=== PATIENT | male | born 1970 | race Two or more races ===

== ENCOUNTER 2024-12-17 17:52 | Observation (INO) | payer BC, SELFPAY ==
[2024-12-17] VITALS (8 sets, daily range): BP systolic 119–179; BP diastolic 64–104; PULSE 70–157; RESP 14–21; TEMP 36.6–36.8; O2SAT 92–99; BMI 35.9
--- NOTE | 2024-12-17 18:16 | EKG_ITS ---
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
[2024-12-17] MEDS: ASPIRIN 81 MG CHEW 324 MG PO (18:37)
[2024-12-17] MEDS: DILTIAZEM INJ 5 MG/ML VIAL 5 ML 25 MG IV (18:37)
[2024-12-17] MEDS: DILTIAZEM in D5W 125 MG 125 MG/125 ML BAG IV (18:38)
[2024-12-17 19:30] LABS: Basophils # (Auto) 0.0 Thou/mm3 (0.0-0.2); Basophils % (Auto) 0 % (0-2.5); Eosinophils # (Auto) 0.0 Thou/mm3 (0.0-0.5); Eosinophils % (Auto) 0 % (0-10); Hematocrit 37.7 % (41.0-53.0); Hemoglobin 13.1 g/dL (13.5-16.0); Immature Granulocytes Auto 0.01 Thou/mm3 (0.00-0.00); Lymphocytes # (Auto) 2.6 Thou/mm3 (1.0-4.8); Lymphocytes % (Auto) 35 % (10-50); Mean Corpuscular HGB Conc 34.7 g/dl (31.0-37.0); Mean Corpuscular Hemoglobin 31.4 pg (25.0-35.0); Mean Corpuscular Volume 90 fL (80-100); Monocytes # (Auto) 0.7 Thou/mm3 (0.0-0.8); Monocytes % (Auto) 9 % (0-12); Neutrophils # (Auto) 4.2 Thou/mm3 (1.8-7.7); Neutrophils % (Auto) 55 % (37-80); Nucleated Red Blood Cell # 0.00 Thou/mm3 (0.00-0.00); Nucleated Red Blood Cell % 0 /100 WBC (0); Platelet Count 175 Thou/mm3 (140-440); RDW Standard Deviation 46.7 fL (35.1-43.9); Red Blood Count 4.17 Miln/mm3 (4.50-5.90); White Blood Count 7.6 Thou/mm3 (3.8-10.6)
[2024-12-17 19:53] LABS: B-Type Natriuretic Peptide < 20 pg/mL (0-100)
[2024-12-17 19:58] LABS: Alanine Aminotransferase 34 U/L (10-49); Albumin, Serum 4.2 gm/dL (3.5-5.0); Albumin/Globulin Ratio 1.8 (1.2-2.2); Alkaline Phosphatase 45 U/L (46-116); Anion Gap 9 (7-16); Aspartate Amino Transferase 28 U/L (0-34); BUN/Creatinine Ratio 20 Ratio (12-20); Bilirubin,Direct 0.2 mg/dL (0.0-0.3); Bilirubin,Total 0.7 mg/dL (0.3-1.2); Blood Urea Nitrogen 22 mg/dL (9-23); Calcium 10.1 mg/dL (8.3-10.6); Calcium (Corrected) 10.1 mg/dL (8.5-10.1); Carbon Dioxide 28.3 mMol/L (20.0-31.0); Chloride 105 mMol/L (98-107); Creatinine (Component) 1.1 mg/dL (0.6-1.3); Estimated Creatinine Clearance 102.8 mL/min (>60); Free T4 (Free Thyroxine) 1.43 ng/dL (0.89-1.76); Globulin 2.4 gm/dL (2.3-3.5); Glucose 114 mg/dL (74-106); Magnesium 1.6 mg/dL (1.6-2.6); Osmolality,Calculated 287 (275-295); Potassium 4.3 mMol/L (3.4-5.1); Sodium 142 mMol/L (136-145); Thyroid Stimulating Hormone 1.29 uIU/mL (0.55-4.78); Total Protein 6.6 gm/dL (5.7-8.2); Troponin I < 0.020 ng/mL (0.0-0.045); eGFR > 60 See Note
[2024-12-17 20:08] LABS: Collection Type, Urine Clean Catch; RBC,Urine 0 /hpf (0-3); WBC,Urine 0 /hpf (0-5)
[2024-12-17 20:19] LABS: D-Dimer < 250 ng/mL (<600)
[2024-12-17 20:29] LABS: Bilirubin,Urine Negative (Negative); Blood,Urine Negative (Negative); Clarity,Urine Clear (Clear/Hazy); Color,Urine Lt-Yellow (Lt Yel-Yel); Culture Indicated,Urine Not Indicated; Glucose, Urine Negative (Negative); Hyaline Casts,Urine < 1 /hpf (0-1); Ketones,Urine Negative (Negative); Leukocyte Esterase,Urine Negative (Negative); Nitrite,Urine Negative (Negative); PH,Urine 7.0 (5.0-7.0); Protein,Urine Negative (Neg - Trace); Specific Gravity,Urine 1.012 (1.001-1.035); Squamous Epithelial Cell,Urine 1 /hpf (0-5); Urobilinogen,Urine Negative mg/dL (0.0-1.0)
[2024-12-17 20:34] LABS: Base Excess 4 (-3-3); HCO3 29 mEq/L (20-26); Inspired Oxygen, FIO2 21 %; O2 Saturation 70 % (91-98); PCO2 46 mmHg (32.0-48.0); pH, Arterial 7.41 (7.35-7.45)
[2024-12-17 20:44] LABS: Allen Test Performed/OK; PO2 37 mmHg (83-108); Puncture Site Right Radial
[2024-12-17] MEDS: Magnesium Sulfate 2 GM Ivpb 2 GM/50 ML BAG IV ×2 (20:50→23:25)
--- NOTE | 2024-12-17 21:27 | PD.RESHP ---
Documentation for date of: 12/17/24 HPI History of Present Illness Chief complaint: afib w/ RVR History of present illness: 54 y/o M with PMHx significant for A-fib with previous episode of RVR, hypertension, diabetes presented to ED with chief complaint of chest pain, palpitations, shortness of breath. Patient found to have A-fib with RVR, EKG showed rapid ventricular response bpm 157. Patient given Cardizem bolus and started on Cardizem drip, but continued to have HR >120 . At time of exam patient was on oxygen 2L of [place], denies chest pain, shortness of breath, palpitation, headache, fatigue, weakness, nausea, vomiting. Patient admits to not taking his Diltiazem occasionally but has been compliant for past 2 days. ED COURSE: Labs significant for: Hemoglobin 13.1, magnesium 1.6, troponin negative. Imaging significant for: Chest x-ray unremarkable. EKG showing A-fib with RVR, 157. Patient received diltiazem drip and bolus, loading dose aspirin. PMH: HTN, A-fib, DM PSH: Right hip replacement SH: Denies alcohol, tobacco, illicit drug use Allergies:?NKDA Medications: Metformin, Mounjaro, Xarelto, rosuvastatin, lisinopril, diltiazem Review of Systems Review of Systems Systems Reviewed: All systems reviewed, normal except as documented Past Medical History Past Medical History Comments PMH COMMENT: PMH: HTN, A-fib, DM PSH: Right hip replacement SH: Denies alcohol, tobacco, illicit drug use Allergies:?NKDA Medications: Metformin, Mounjaro, Xarelto, rosuvastatin, lisinopril, diltiazem Exam Vital Signs Temp Pulse Resp BP Pulse Ox O2 Del Method O2 Flow Rate 97.8 F 120 H 19 179/104 H 99 Nasal Cannula 2 12/17/24 20:07 12/17/24 20:07 12/17/24 20:12/17/24 20:07 12/17/24 20:07 12/17/24 20:07 12/17/24 18:19 FiO2 2 12/17/24 20:07 Narrative Exam PE: Gen: Well-developed and well-nourished. HEENT: NCAT, PERRLA, EOMI, MMM, anicteric conjunctivae. CVS: normal S1 and S2. No M/R/G. Atrial fibrillation, tachycardia (100?110). Resp: CTA B/L. No rhonchi, rales, crackles or wheezing. Abd: soft, non-tender, non-distended. BS+ in all 4 quadrants. MSK: Good ROM in BUE & BLE. No rash. 1+ pitting edema BLE. Neuro: CN II-XII grossly intact. Strength 5/5 in BUE & BLE. Alert and oriented x3. Psych: appropriate mood and affect. Results: Labs 12/17/24 18:38 12/17/24 18:38 Labs: Short CBC 12/17/24 Range/Units 18:38 WBC 7.6 (3.8-10.6) Thou/mm3 Hgb 13.1 L (13.5-16.0) g/dL Hct 37.7 L (41.0-53.0) % Plt Count 175 (140-440) Thou/mm3 BMP 12/17/24 18:38 Sodium 142 Potassium 4.3 Chloride 105 Carbon Dioxide 28.3 BUN 22 Creatinine 1.1 Glucose 114 H Calcium 10.1 Cardiac Enzymes 12/17/24 Range/Units 18:38 Troponin I < 0.020 (0.0-0.045) ng/mL Liver Function 12/17/24 Range/Units 18:38 Total Bilirubin 0.7 (0.3-1.2) mg/dL Direct Bilirubin 0.2 (0.0-0.3) mg/dL AST 28 (0-34) U/L ALT 34 (10-49) U/L Alkaline Phosphatase 45 L (46-116) U/L Albumin 4.2 (3.5-5.0) gm/dL Urine 12/17/24 Range/Units 19:54 Urine Color Lt-Yellow (Lt Yel-Yel) Urine Clarity Clear (Clear/Hazy) Urine pH 7.0 (5.0-7.0) Ur Specific [place] 1.012 (1.001-1.035) Urine Protein Negative (Neg - Trace) Urine Glucose (UA) Negative (Negative) ABG Interpretation ABG results: 12/17/24 20:20 ABG pH 7.41 ABG pCO2 46 ABG pO2 37 L* ABG HCO3 29 H ABG O2 Saturation 70 L ABG Base Excess 4 H Quality Measures Quality Measures VTE prophylaxis Medications Home Medications and Allergies Allergies Allergy/AdvReac Type Severity Reaction Status Date / Time No Known Allergies Allergy Verified 12/17/24 18:33 Visit Medications Acetaminophen (Acetaminophen 325 Mg Tablet) 650 mg PO Q6H PRN PRN Reason: Fever >100.4 or pain Stop: 01/16/25 21:12 Dextrose (Dextrose 50%-Water Inj 50 Ml Syringe) 25 ml IV Q15MIN PRN PRN Reason: BG 50-70 responsive npo pt Stop: 01/16/25 21:12 Dextrose (Dextrose 50%-Water Inj 50 Ml Syringe) 50 ml IV Q15MIN PRN PRN Reason: BG <50 OR BG <70 & pt unresponsive Stop: 01/16/25 21:12 Glucagon (Glucagon Inj 1 Mg Vial) 1 mg IM Q15MIN PRN PRN Reason: BG <70, and no IV access Diltiazem HCl (Diltiazem In D5w 125 Mg) 125 mg in 125 mls @ 5 mls/hr IV .Q24H [facility] Stop: 01/16/25 18:19 Last Admin: 12/17/24 18:38 Dose: 5 mg/hr, 5 mls/hr Magnesium Sulfate (Magnesium Sulfate Ivpb) 2 gm in 50 mls @ 25 mls/hr IV X1 ONE Stop: 12/17/24 22:13 Last Admin: 12/17/24 20:50 Dose: 25 mls/hr Magnesium Sulfate (Magnesium Sulfate Ivpb) 2 gm in 50 mls @ 25 mls/hr IV X1 ONE Stop: 12/17/24 23:18 Insulin Human Lispro (Insulin Lispro (Admelog) 1 Unit/0.01 Ml Unit) 0 unit SC [facility]; Protocol Stop: 01/17/25 07:29 Lisinopril (Lisinopril 20 Mg Tablet) 20 mg PO QDAY [facility] Stop: 01/17/25 08:59 Rivaroxaban (Rivaroxaban 10 Mg Tablet) 20 mg PO QDAY [facility] Stop: 01/17/25 08:59 Discontinued Medications Aspirin (Aspirin 81 Mg Chew) 324 mg PO X1 ONE Stop: 12/17/24 18:28 Last Admin: 12/17/24 18:37 Dose: 324 mg Diltiazem HCl (Diltiazem Inj 5 Mg/Ml Vial 5 Ml) 25 mg IV X1 ONE Stop: 12/17/24 18:21 Last Admin: 12/17/24 18:37 Dose: 25 mg Diltiazem HCl (Diltiazem Cd 120 Mg Capcr) 120 mg PO X1 ONE Stop: 12/17/24 21:20 Assessment & Plan Plan 54 y/o M with PMHx significant for A-fib with previous episode of RVR, hypertension, diabetes presented to ED with chief complaint of chest pain, palpitations, shortness of breath, admitted to observation for A-fib with RVR. #A-fib with RVR Patient presented with chest pain, palpitations, shortness of breath, found to have A-fib with RVR. Initial EKG showed A-fib with RVR 157 bpm, Continues to have RVR of rate around 120. Patient magnesium 1.6, receiving 4 g IV. Potassium 4.3. Labs otherwise unremarkable, troponin negative. - Diltiazem 120 mg p.o. x 1, DC drip after 2 hours. - Telemetry monitoring - Admit for observation, anticipate discharge tomorrow - Resume home Xarelto 20 mg p.o. daily - Resume home diltiazem 120 mg p.o. daily tomorrow - Consult in house Cardio if continues to have RVR - Follow up with outpatient Cardiology #HTN Patient history as stated. Takes lisinopril at home. - Resume home lisinopril 20 mg p.o. daily #Rxj-hwwindn-cvoqeugnq diabetes Patient history of diabetes, does not take insulin. Takes metformin and Mounjaro at home. No A1c on file with [facility]. - ISS - Carb consistent diet - A1c ordered, follow-up DVT prophylaxis: Xarelto GI prophylaxis: None Diet: Cardiac, carb consistent Lines: Peripheral IV Code status: Full code Plan of care discussed with attending Dr. Amador Khalil MD PGY-2 Attending Provider Attestation/Addendum Attending Provider Attestation/Addendum After examination of the patient and review of the clinical data I feel that this patient needs admission to the hospital for further treatment/evaluation. I Shravan English MD, attest that I was physically present for [place] portions of evaluation, and examined patient, labs and imagings and plan of care were discussed with IM residents team, and I agree with the findings and plans documented above.
[2024-12-17] MEDS: DILTIAZEM CD 120 MG CAPCR PO (23:58)
[2024-12-18] VITALS (9 sets, daily range): BP systolic 137–155; BP diastolic 83–99; PULSE 67–82; RESP 12–20; TEMP 36.1–37; O2SAT 95–99
[2024-12-18 04:37] LABS: Basophils # (Auto) 0.0 Thou/mm3 (0.0-0.2); Basophils % (Auto) 0 % (0-2.5); Eosinophils # (Auto) 0.1 Thou/mm3 (0.0-0.5); Eosinophils % (Auto) 1 % (0-10); Hematocrit 40.2 % (41.0-53.0); Hemoglobin 13.9 g/dL (13.5-16.0); Immature Granulocytes Auto 0.02 Thou/mm3 (0.00-0.00); Lymphocytes # (Auto) 3.2 Thou/mm3 (1.0-4.8); Lymphocytes % (Auto) 36 % (10-50); Mean Corpuscular HGB Conc 34.6 g/dl (31.0-37.0); Mean Corpuscular Hemoglobin 32.0 pg (25.0-35.0); Mean Corpuscular Volume 92 fL (80-100); Monocytes # (Auto) 0.9 Thou/mm3 (0.0-0.8); Monocytes % (Auto) 10 % (0-12); Neutrophils # (Auto) 4.8 Thou/mm3 (1.8-7.7); Neutrophils % (Auto) 53 % (37-80); Nucleated Red Blood Cell # 0.00 Thou/mm3 (0.00-0.00); Nucleated Red Blood Cell % 0 /100 WBC (0); Platelet Count 180 Thou/mm3 (140-440); RDW Standard Deviation 49.1 fL (35.1-43.9); Red Blood Count 4.35 Miln/mm3 (4.50-5.90); White Blood Count 9.0 Thou/mm3 (3.8-10.6)
[2024-12-18 04:54] LABS: Glucose Estimated Average 131 mg/dL (80-131); Hemoglobin A1C 6.2 % Hgb (4.8-6.0)
[2024-12-18 04:58] LABS: Anion Gap 8 (7-16); BUN/Creatinine Ratio 18 Ratio (12-20); Blood Urea Nitrogen 16 mg/dL (9-23); Calcium 9.4 mg/dL (8.3-10.6); Carbon Dioxide 29.7 mMol/L (20.0-31.0); Chloride 102 mMol/L (98-107); Creatinine (Component) 0.9 mg/dL (0.6-1.3); Estimated Creatinine Clearance 125.6 mL/min (>60); Glucose 103 mg/dL (74-106); Magnesium 1.9 mg/dL (1.6-2.6); Osmolality,Calculated 280 (275-295); Potassium 3.9 mMol/L (3.4-5.1); Sodium 140 mMol/L (136-145); eGFR > 60 See Note
[2024-12-18] MEDS: DILTIAZEM CD 120 MG CAPCR PO (10:01)
[2024-12-18] MEDS: POTASSIUM CHLORIDE 10% 20 MEQ/15 ML UDC 40 MEQ GT (10:01)
--- NOTE | 2024-12-18 10:05 | PC.SS ---
Patient Suleiman Barragan is a 54 Year old male admitted for AFIB W RVR. SS met with patient at bedside to discuss discharge plan and verify demographic information. Patient reports she lives at home with his , Rosanna Barragan who is his surrogate decision maker, [phone]. Patient reports that she is able to perform all ADL's independently and does not utilize any source of DME to assist with ambulation Choice of pharmacy is [facility] in [place] by [facility]. Patient's PCP is Francisco Carrizales. Patient reports he would like to discharge home when medically cleared. Discharge plan: Home Next of kin:, Rosanna Barragan [phone]
[2024-12-18] MEDS: Magnesium Sulfate 2 GM Ivpb 2 GM/50 ML BAG IV (10:12)
--- NOTE | 2024-12-18 13:22 | ESDS_ITS ---
<Statement entered by Emerita Mejia MD - 12/18/24 19:40> I have reviewed the note and agree with the resident's assessment & plan with exceptions as below. I have personally reviewed labs, imaging, home meds/prior records, examined the patient, formulated and discussed management plan with the IM team. Emerita Mejia, PGY-2 Internal Medicine Planned Discharge Date 12/18/24 DS: Providers Provider Date of admission: 12/17/24 20:59 Primary care physician: Francisco Carrizales MD Admitting Provider: Shravan English MD Attending Provider on Admission: Shravan English MD Attending Provider on DC: Juventino Mcgrath DO Discharging Provider: Juventino Mcgrath DO DS: Diagnosis Problem List Completed Was Problem List Reviewed/Reconciled?: Yes Hospital Course Hospital Course Hospital course: is a 54 year old male with PMHx significant for A-fib with previous episode of RVR (3 years ago), hypertension, non-insulin dependent diabetes mellitus, who presented to ED with chest pain, palpitations, shortness of breath. Admitted for observation of Afib with RVR. ED course: Labs significant for Mg 1.6, troponin negative. EKG showing A-fib with RVR and HR of 157. Patient received diltiazem drip and bolus, and loading dose aspirin. However, HR remained >120. Hospital course: Patient's HR eventually improved to 70s, and has remained at goal. Patient was restarted on home po meds: diltiazem 120 mg po QD, Xarelto 20 mg po QD, and lisinopril 20 mg po QD. 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 Per patient he has been compliant with medications, but did miss a dose about 2- 3 days ago due to longer work hours. Suspect there was also a factor of incr eased work stressors contributing to his episode of RVR. At time of discharge, patient is hemodynamically stable without chest pain, shortness of breath, or palpitations. Denies nausea, vomiting, or headache. Plan to continue home medications for now, but encouraged patient to follow up with his meat washer within a week of discharge for further management. Discharge instructions: Follow-up with PCP within 1 week of discharge Follow-up with your meat washer in [place] Take all your medicines as prescribed I am prescribing you a work note Refrain from heavy physical activity at work and excess activity Return to ED if your symptoms worsen or return Problem list: #A-fib with RVR #HTN #Wok-bgvesre-gjxkwwlyu diabetes Case discussed with my attending Dr. Mcgrath, and senior resident, Dr. Roberto Tanner, OMS4 Time Spent with Patient Time attestation: Total time spent providing and/or coordinating discharge services: Time spent: Greater than 30 minutes Exam Vital Signs Temp Pulse Resp BP Pulse Ox O2 Del Method O2 Flow Rate 97.3 F 77 20 143/92 H 99 Room Air 2 12/18/24 12:00 12/18/24 12:00 12/18/24 12:00 12/18/24 12:00 12/18/24 12:00 12/18/24 12:00 12/17/24 22:48 FiO2 2 12/17/24 20:07 Narrative Exam GENERAL: A&OX3. No acute distress. Not diaphoretic. HEENT: Normocephalic. No scleral icterus. EOMI CV: Irregular rhythm. Not tachycardic. S1 and S2 heard. No murmurs. PULM: No accessory muscle use. CTAB. No wheezing or crackles. ABDOMEN: Soft and non-distended. No tenderness to palpation of all quadrants. No rebound or guarding. EXTREMITIES: No lower extremity edema. SKIN: Warm and dry. NEURO: Moving all extremities spontaneously. No aphasia. No facial asymmetry. PSYCH: Cooperative with exam. 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-up with your meat washer in [place] Take all your medicines as prescribed I am prescribing you a work note Refrain from heavy physical activity at work and excess activity Return to ED if your symptoms worsen or return Prescriptions/Referrals Prescriptions/Med Rec: Continued lisinopril 20 mg tablet 20 mg PO DAILY Patient Comments: TAKE 1 TABLET BY MOUTH DAILY diltiazem HCl 120 mg tablet 120 mg PO DAILY Patient Comments: TAKE 1 TABLET BY MOUTH DAILY metformin 1,000 mg tablet 1,000 mg PO BID Patient Comments: TAKE 1 TABLET BY MOUTH TWICE DAILY rosuvastatin 40 mg tablet 40 mg PO DAILY Patient Comments: TAKE 1 TABLET BY MOUTH DAILY Mounjaro 7.5 mg/0.5 mL pen injector 7.5 mg SUBCUT .weekly Patient Comments: ADMINISTER 7.5 MG UNDER THE SKIN WEEKLY Xarelto 20 mg tablet 20 mg PO HS Patient Comments: TAKE 1 TABLET BY MOUTH WITH FOOD ONCE DAILY Referrals: Francisco Carrizales MD [Primary Care Provider] - Patient/Caregiver Discharge Instructions Discharge Activity: activity as tolerated Education Materials: AFL/Afib, Calcium Channel Blockers Dc Print Language: Nigerien Stand Alone Forms: Brandi Award Info., Patient Portal Info Letter, Work/Release Restrictions Discharge Order Discharge Orders: Discharge (Routine); Ordered 12/18/24 Ordered By: Emerita Mejia Quality Discharge Quality Measures VTE prophylaxis (On Xarelto for Afib) Attestestation MD Attestation I have discussed and was present for the essential components of the discharge history, physical examination, diagnosis, and discharge treatment plan with the resident. I agree with the patient's discharge care as documented by the resident and amended herein by me. Danish Mcgrath DO. The patient understood all discharge instructions, all questions were answered satisfactorily. The patient was instructed to return to the Emergency Department is symptoms worsened or persisted. Patient's symptoms and A-fib with RVR completely resolved. I did not modify the dosages of his home medications, recommended patient follow-up within 1 week to his meat washer for further evaluation. The patient states he is under a lot of stress at work which preceded his symptoms this time. All questions were answered satisfactorily patient was stable, afebrile, tolerating p.o. intake and ambulatory at time of discharge home. Although this document has been carefully reviewed, there may still be some phonetic and other typographical errors. These errors are purely grammatical due to imperfections in the software program and should not be construed in any way to compromise the substance of the patient's medical care during this visit.
== END 2024-12-18 14:49 | disposition home or self-care (01) ==
LOC: SERX 21:01 → SERHOLD 21:38 → S3SX 12-18 07:25
PROVIDERS: Admitting Provider Student in an Organized Health Care Education/Training Program; Emergency Provider Emergency Medicine; PCP Family Medicine; Visit Provider Student in an Organized Health Care Education/Training Program
DX: I48.91 Unspecified atrial fibrillation (principal); I10 Essential (primary) hypertension; E11.9 Type 2 diabetes mellitus without complications
CPT/HCPCS: 36415; 36600; 71045; 80048; 80053; 81001; 82248; 82803; 83036; 83735; 83880; 84439; 84443; 84484; 85025; 85379; 87400; 87811; 93005; 96365; 96366; 99284; G0378; J3475; J3490; A9270